=== PATIENT | female | born 1970 | race African-American/Black ===

== ENCOUNTER 2019-02-21 18:35 | Inpatient (IN) | payer OTHER ==
[~2019-02-21] VITALS: Ht 162.6 cm; Wt 97.1 kg
[~2019-02-21 18:35] MED LIST: INSULIN GLARGINE UD 100 UNITS/ML SYR SUBCUT SCH
[2019-02-21] MEDS ORDERED: LISINOPRIL 20MG TABLET PO ONE (20:45)
[2019-02-21] MEDS ORDERED: HYDRALAZINE 20MG/ML VIAL IV ONE (20:45)
[2019-02-21] MEDS ORDERED: METOLAZONE 2.5MG TABLET PO NR (20:45)
[2019-02-21] MEDS ORDERED: ALBUTEROL (0.083%) 2.5MG/3ML NEB HHN STA (20:45)
[2019-02-21] MEDS ORDERED: BUMETANIDE 1MG/4ML VIAL IV ONE (20:45)
[2019-02-21 21:03] LABS: EOSINOPHILS % 1.2 % (0.0-5.0); HCG SCREEN NEGATIVE; HEMOGLOBIN. 10.6 g/dL (12.0-16.0); LYMPHOCYTES % 23.6 % (20.0-50.0); MEAN CORPUSCULAR HEMOGLOBIN 25.6 pg (28.0-32.0); MEAN CORPUSCULAR VOLUME 79.6 fL (81.0-99.0); MEAN PLATELET VOLUME 8.5 fl (7.4-10.4); MONOCYTES % 7.2 % (2.0-8.0); PLATELET 280 x1000/uL (130-400); RED BLOOD CELL COUNT 4.14 mill/uL (4.2-5.4); RED CELL DISTRIBUTION WIDTH 15.9 % (11.6-14.6)
[2019-02-21 21:06] LABS: CHLORIDE 107 mEq/L (98-107)
[2019-02-21 21:07] LABS: PARTIAL THROMBOPLASTIN TIME 29.2 sec (23.4-31.0); PROTHROMBIN TIME 10.2 sec (9.6-11.0)
[2019-02-21] MEDS ORDERED: INSULIN REGULAR (HUMULIN R) 300UNITS/3ML IV ONE (22:00)
[2019-02-21] MEDS ORDERED: LEVOFLOXACIN 500MG PREMIX 100 ML IV ONE (22:00)
[2019-02-21] MEDS ORDERED: DEXTROSE 50% WATER 50ML SYRINGE IV PRN (22:30)
[2019-02-21] MEDS ORDERED: ZOLPIDEM TARTRATE 5MG TABLET PO PRN (22:30)
[2019-02-21] MEDS ORDERED: LORAZEPAM 0.5MG TABLET PO PRN (22:30)
[2019-02-21] MEDS ORDERED: NITROGLYCERIN 0.4MG TABLET SL SL PRN (22:30)
[2019-02-21] MEDS ORDERED: CLONIDINE 0.1MG TABLET PO PRN (22:30)
[2019-02-21] MEDS ORDERED: DOCUSATE SODIUM 100MG CAPSULE PO PRN (22:30)
[2019-02-21] MEDS ORDERED: IPRATROPIUM/ALBUTEROL 0.5-3(2.5)MG/3ML NEB INH PRN (22:30)
[2019-02-21] MEDS ORDERED: MAGNESIUM/ALUMINUM HYDROXIDE/SIMETHICONE 30ML UDC PO PRN (22:30)
[2019-02-21] MEDS ORDERED: ONDANSETRON HCL 4MG/2ML INJ IV PRN (22:30)
[2019-02-21] MEDS ORDERED: ACETAMINOPHEN 325MG TABLET PO PRN (22:30)
[2019-02-21] MEDS ORDERED: GUAIFENESIN 200MG/10ML SUGAR FREE UDC PO PRN (22:30)
[2019-02-21] MEDS ORDERED: LABETALOL 5MG/ML SYR 20 MG/4 ML SYRINGE IV ONE (22:45)
[2019-02-21 22:55] LABS: T4 FREE 1.2 ng/dL (0.76-1.46)
[2019-02-21 23:14] LABS: FOLIC ACID (FOLATE) SERUM 11.6 ng/mL (>5.38)
[2019-02-21] MEDS ORDERED: TRAMADOL 50MG TABLET PO PRN (23:15)
[2019-02-21] MEDS ORDERED: MORPHINE SULFATE 4 MG/ML CPJ (NOT FOR IM USE) IV PRN (23:15)
[2019-02-22] VITALS: BP 170/84
[2019-02-22 00:05] VITALS: BP 170/84
[2019-02-22] MEDS ORDERED: CARV25TA47 PO (00:36)
[2019-02-22] MEDS ORDERED: HYDR-4134 PO (00:36)
[2019-02-22] MEDS ORDERED: TORS100T11 PO (00:36)
[2019-02-22] MEDS ORDERED: METO2.5T14 PO (00:36)
[2019-02-22] MEDS ORDERED: ISOS20TA8 PO (00:36)
[2019-02-22] MEDS ORDERED: LISI-604 PO (00:37)
[2019-02-22] MEDS ORDERED: ATOR-2 PO (00:37)
[2019-02-22] MEDS ORDERED: INSLIS SUBCUT (00:37)
[2019-02-22] MEDS ORDERED: POTA25TA8 PO (00:39)
[2019-02-22] MEDS ORDERED: INSU100I22 SQ (00:39)
[2019-02-22] MEDS: BLOOD SUGAR DIAGNOSTIC STRIP TEST SCH ×5 (00:41→20:44)
[2019-02-22] MEDS: AMLODIPINE 10MG TABLET PO SCH ×2 (00:46→10:16)
[2019-02-22] MEDS: INSULIN LISPRO 100 UNITS/ML SUBCUT SCH ×5 (00:47→20:44)
[2019-02-22 03:26] LABS: *AMPHETAMINES SCREEN URINE NEGATIVE (NEGATIVE); *BARBITURATES SCREEN URINE NEGATIVE (NEGATIVE)
[2019-02-22 03:27] LABS: *BENZODIAZEPINES SCREEN URINE NEGATIVE (NEGATIVE); *COCAINE SCREEN URINE NEGATIVE (NEGATIVE); CANNABINOID URINE SCREEN NEGATIVE (NEGATIVE); METHADONE URINE SCREEN NEGATIVE (NEGATIVE); OPIATES URINE SCREEN NEGATIVE (NEGATIVE); PHENCYCLIDINE URINE SCREEN NEGATIVE (NEGATIVE)
[2019-02-22 04:00] VITALS: BP 187/91
[2019-02-22] MEDS: HYDRALAZINE HCL 50MG TABLET PO SCH ×3 (06:10→22:08)
[2019-02-22 07:11] LABS: CREATINE KINASE MB FRACTION 2.9 ng/mL (0.5-3.6)
[2019-02-22 08:00] VITALS: BP 161/86
[2019-02-22] MEDS: FAMOTIDINE 20MG TABLET PO SCH ×2 (10:15→20:38)
[2019-02-22] MEDS: ASPIRIN 325MG EC TABLET PO SCH (10:15)
[2019-02-22] MEDS: METOPROLOL TARTRATE 25MG TABLET PO SCH ×2 (10:16→20:38)
[2019-02-22] MEDS: LISINOPRIL 20MG TABLET PO SCH ×2 (10:17→20:37)
[2019-02-22] MEDS: FUROSEMIDE 40MG/4ML VIAL IVP SCH ×2 (10:19→20:37)
[2019-02-22] MEDS: INSULIN GLARGINE UD 100 UNITS/ML SYR SUBCUT SCH (10:28)
[2019-02-22] MEDS: ENOXAPARIN 30MG/0.3ML SYR SUBCUT SCH ×2 (11:59→20:38)
[2019-02-22 15:09] LABS: CREATINE KINASE MB FRACTION 2.5 ng/mL (0.5-3.6)
[2019-02-22 16:00] VITALS: BP 119/65
[2019-02-22 20:00] VITALS: BP 146/80
[2019-02-23] VITALS: BP 149/84
[2019-02-23 04:00] VITALS: BP 156/89
[2019-02-23] MEDS: BLOOD SUGAR DIAGNOSTIC STRIP TEST SCH (06:09)
[2019-02-23] MEDS: HYDRALAZINE HCL 50MG TABLET PO SCH (06:15)
[2019-02-23] MEDS: INSULIN LISPRO 100 UNITS/ML SUBCUT SCH (06:16)
[2019-02-23 08:00] VITALS: BP 140/81
[2019-02-23] MEDS: FUROSEMIDE 40MG/4ML VIAL IVP SCH (08:13)
[2019-02-23] MEDS: FAMOTIDINE 20MG TABLET PO SCH (08:14)
[2019-02-23] MEDS: AMLODIPINE 10MG TABLET PO SCH (08:14)
[2019-02-23] MEDS: ENOXAPARIN 30MG/0.3ML SYR SUBCUT SCH (08:14)
[2019-02-23] MEDS: LISINOPRIL 20MG TABLET PO SCH (08:14)
[2019-02-23] MEDS: ASPIRIN 325MG EC TABLET PO SCH (08:14)
[2019-02-23] MEDS: METOPROLOL TARTRATE 25MG TABLET PO SCH (08:14)
[2019-02-23] MEDS ORDERED: ENOXAPARIN 40MG/0.4ML SYR SUBCUT SCH (09:00)
[2019-02-23 10:08] VITALS: BP 140/81
[2019-02-23] MEDS: INSULIN GLARGINE UD 100 UNITS/ML SYR SUBCUT SCH (10:18)
[2019-02-23] MEDS ORDERED: SODIUM BICARBONATE 4% (2.4MEQ) 5ML VIAL IV ONE (10:31)
== END 2019-02-23 10:50 | disposition home or self-care (01) | DRG 291 ==
LOC: ER 18:35 → 5WST 21:59 → EDBEDREQTM 22:03 → EDBEDREQ 22:03 → SUPCPDRO 22:19 → ENRESERV 22:28
PROVIDERS: ADMIT Internal Medicine; ATTEND Internal Medicine
DX: I11.0 Hypertensive heart disease with heart failure (principal); J96.00 Acute respiratory failure, unspecified whether with hypoxia or hypercapnia; N17.0 Acute kidney failure with tubular necrosis; E44.0 Moderate protein-calorie malnutrition; I50.43 Acute on chronic combined systolic (congestive) and diastolic (congestive) heart failure; I16.0 Hypertensive urgency; D63.8 Anemia in other chronic diseases classified elsewhere; E11.9 Type 2 diabetes mellitus without complications; Z79.4 Long term (current) use of insulin; Z79.899 Other long term (current) drug therapy; Z95.0 Presence of cardiac pacemaker; Z91.14 Patient's other noncompliance with medication regimen
CPT/HCPCS: 36415; 71045; 76770; 80061; 80305; 82550; 82553; 82607; 82746; 82962; 83036; 83540; 83550; 83735; 83880; 84439; 84443; 84484; 84703; 93005; 93306; 93970; 94640; 96374; 96375; 99291; J0360; J1650; J1815; J1940; J3490; J7611